=== PATIENT | female | born 1985 | race Hispanic/Latino ===

== ENCOUNTER 2018-11-13 14:07 | Emergency (ER) | payer SELFPAY ==
[~2018-11-13] VITALS: Ht 160 cm; Wt 68.0 kg
[2018-11-13] MEDS ORDERED: KEFLEX500 MG PO (16:21)
== END 2018-11-13 16:28 | disposition home or self-care (01) ==
LOC: ED 14:07
DX: L03.116 Cellulitis of left lower limb (principal)
CPT/HCPCS: 93971; 99283-25

== ENCOUNTER 2024-06-20 05:33 | Day surgery (SDC) | payer OTHER ==
[2024-06-15 14:42] VITALS: BP 136/87
[~2024-06-20] VITALS: Ht 157.5 cm; Wt 70.9 kg
[2024-06-20] VITALS (10 sets, daily range): BP systolic 115–135; BP diastolic 64–89
[~2024-06-20 05:33] MED LIST: KEFLEX500 MG PO; LACTATED RINGER'S 1,000 ML IV SCH; NAPROSYN500 MG PO; VALIUM10 MG PO
[2024-06-20] MEDS ORDERED: ALLEGRA ALLERG180 MG PO (06:05)
[2024-06-20] MEDS ORDERED: FLUTICASONE PRO16 GM NAS (06:06)
[2024-06-20] MEDS ORDERED: CEPHALEXIN500 MG PO (06:06)
[2024-06-20] MEDS ORDERED: MUCINEX600 MG PO (06:07)
[2024-06-20] MEDS ORDERED: CABERGOLINE0.5 MG PO (06:22)
[2024-06-20] MEDS ORDERED: LIDOCAINE HCL 1% 5 ML SDV INJ ONE (07:00)
[2024-06-20] MEDS ORDERED: IBLOOD GLUCOSE TEST STRIP 1 EA TEST VI PRN ×2 (07:00→09:00)
[2024-06-20] MEDS ORDERED: CEFAZOLIN SODIUM 2 GM/20 ML SYR IV SCH (07:00)
[2024-06-20] MEDS ORDERED: DEXAMETHASONE SOD PHOS 4 MG/ML VIAL ONE (07:30)
[2024-06-20] MEDS ORDERED: propofoL 200 MG/20 ML VIAL ONE (07:30)
[2024-06-20] MEDS ORDERED: ROCURONIUM BROMIDE 50 MG/5 ML SYR ONE (07:30)
[2024-06-20] MEDS ORDERED: LIDOCAINE HCL 2% 20 MG/ML VIAL INJ ONE (07:30)
[2024-06-20] MEDS ORDERED: dexmedeTOMIDine HCl 200 MCG/2 ML VIAL ONE (07:30)
[2024-06-20] MEDS ORDERED: LIDOCAINE HCL 2% 5 ML SDV ONE (07:30)
[2024-06-20] MEDS ORDERED: MIDAZOLAM HCL 2 MG/2 ML VIAL ONE (07:30)
[2024-06-20] MEDS ORDERED: SUGAMMADEX SODIUM 200 MG/2 ML ML ONE (07:30)
[2024-06-20] MEDS ORDERED: fentaNYL citrate 100 MCG/2 ML VIAL ONE (07:30)
[2024-06-20] MEDS ORDERED: ACETAMINOPHEN 1,000 MG/100 ML VIAL ONE (07:30)
[2024-06-20] MEDS ORDERED: ondansetron HCL 4 MG/2 ML VIAL ONE (07:30)
[2024-06-20] MEDS ORDERED: KETAMINE in NS 50 MG/5 ML SYR ONE (07:31)
[2024-06-20] MEDS ORDERED: SEVOFLURANE 250 ML BTL INH ONE (07:31)
[2024-06-20] MEDS ORDERED: KETOROLAC TROMETHAMINE 30 MG/ML VIAL ONE (07:33)
[2024-06-20] MEDS ORDERED: ondansetron HCL 4 MG/2 ML VIAL IV PRN ×2 (09:00→12:00)
[2024-06-20] MEDS ORDERED: NALOXONE HCL 0.4 MG SYR IV PRN ×2 (09:00→12:00)
[2024-06-20] MEDS ORDERED: droPERidol 5 MG/2 ML VIAL IV PRN (09:00)
[2024-06-20] MEDS ORDERED: HYDROmorphone HCL 1 MG/ML SYR IV PRN ×2 (09:00→12:00)
[2024-06-20] MEDS ORDERED: PROCHLORPERAZINE EDISYLATE 10 MG/2 ML VIAL IV PRN ×2 (09:00→12:00)
[2024-06-20] MEDS ORDERED: fentaNYL citrate 50 MCG/ML SDV IV PRN (09:00)
[2024-06-20] MEDS ORDERED: FLUORESCEIN SODIUM 500 MG/5 ML ML ONE (09:04)
[2024-06-20] MEDS ORDERED: LACTATED RINGER'S 1,000 ML IV ONE (09:07)
[2024-06-20] MEDS ORDERED: OXYCODONE/APAP 10/325 TAB PO ONE (11:15)
[2024-06-20] MEDS ORDERED: FAMOTIDINE 20 MG TAB PO PRN (12:00)
[2024-06-20] MEDS ORDERED: SIMETHICONE 125 MG TABLET CHEWABLE PO PRN (12:00)
[2024-06-20] MEDS ORDERED: FAMOTIDINE 20 MG/ 2 ML VIAL IV PRN (12:00)
[2024-06-20] MEDS ORDERED: MAGNESIUM HYDROXIDE/AL HYDROX 30 ML CUP PO PRN (12:00)
[2024-06-20] MEDS ORDERED: diphenhydrAMINE HCL 50 MG/ML VIAL IV PRN (12:00)
[2024-06-20] MEDS ORDERED: OXYCODONE/APAP 5/325 TAB PO PRN (12:00)
[2024-06-20] MEDS ORDERED: SIMETHICONE 125 MG TABLET CHEWABLE PO SCH (13:00)
[2024-06-20] MEDS ORDERED: SCOPOLAMINE 1 MG/3 DAYS PATCH 1 EACH TDSY TD ONE (14:45)
[2024-06-21 01:01] VITALS: BP 103/56
[2024-06-21 01:04] VITALS: BP 103/56
[2024-06-21 05:09] VITALS: BP 112/67
[2024-06-21 05:14] VITALS: BP 112/67
[2024-06-21 09:21] VITALS: BP 113/78
[2024-06-21 09:45] VITALS: BP 113/78
--- NOTE | 2024-06-24 12:56 | PATH ---
[facility] [address], [place] [address] Signed SPECIMEN(S): A UTERUS, CERVIX, AND BILATERAL TUBES SPECIMEN SOURCE: A. UTERUS, CERVIX, AND BILATERAL TUBES CLINICAL HISTORY: Adenomyosis, dysmenorrhea, AUB FINAL PATHOLOGIC DIAGNOSIS: Uterus with bilateral fallopian tubes, hysterectomy with bilateral salpingectomy: - Cervix: Endocervix with squamous metaplasia. - Negative for intraepithelial lesion and malignancy. - Endometrium: Early proliferative phase endometrium. - Negative for hyperplasia, atypia, and malignancy. - Myometrium: Benign myometrium. - Possible section scar identified in anterior lower uterine segment. - No adenomyosis or leiomyomata identified. - Serosa: Benign serosa with no pathologic abnormality. - Fallopian tubes: Right and left fallopian tubes with fimbriated ends. - Discontinuous, consistent with previous tubal ligation. - One tube has a benign 0.6 cm diameter paratubal cyst. - Otherwise no pathologic abnormality identified. SDL MICROSCOPIC EXAMINATION: Histologic sections of all submitted blocks are examined by light microscopy. These findings, together with the gross examination, support the pathologic diagnosis. GROSS DESCRIPTION: The specimen, labeled and designated "Moises Muñoz, uterus, cervix and bilateral tubes," is received in formalin and consists of uterus with attached cervix and detached bilateral fallopian tubes. The uterus and cervix weigh 95 grams with the following measurements: cervix to fundus 8.7 cm, cornu to cornu 5.4 cm, anterior to posterior 4.0 cm. The uterine serosa predominately pink-bey smooth with a few adhesions located on the posterior aspect. The cervix measures 2.8 x 2.7 cm, with pink-bey smooth ectocervical mucosa, and an ovoid, patent 0.5 cm external os. The specimen is PATIENT NAME: CHANDU MUÑOZ PATHOLOGY DATE OF : 81 REPORT #: [id number] PHYSICIAN: [facility] PCP: KELSIE TAMAYO MD REPORT IS CONFIDENTIAL AND NOT TO BE RELEASED WITHOUT AUTHORIZATION [facility] [address], [place] [address] Signed opened to reveal triangular-shaped 4.0 x 2.5 cm endometrial cavity lined by pink-bey endometrium ranging in thickness from 0.1 to 0.3 cm. The lower anterior uterine segment shows a scarred area consistent with a possible previous . The myometrial has pink-bey trabeculated cut surfaces with a thickness is 1.7 cm. There are no nodules or masses identified. The first fallopian tube measures 3.8 x 0.6 with attached fimbriated end and is blunted at one end consistent with previous tubal ligation. The first portion of the second fallopian tube measures 0.7 x 0.3 cm with a single peritubular cyst measuring 0.6 cm in greatest dimension. Upon sectioning the second portion of the tube consistent with vasculature no grossly identifiable fallopian tube seen. Cassette Summary: (A1) service representative sections of cervix (A2) service representative sections of endometriummyometrium (A3) service representative section of possible scar (A4) service representative sections of the first described fallopian tube (A5) entire second described fragment possible fallopian tube JM (under the direct supervision of a pathologist) The Gross Description was prepared using a voice recognition system. The report was reviewed for accuracy; however, sound-alike word errors, addition and/or deletions may occur. If there are any questions about this report, please contact Client Services. ADDITIONAL NOTES: Immunohistochemical and/or in situ hybridization studies if performed in this case included appropriate positive controls that reacted as expected. This test was developed and its performance characteristics determined by [facility]. It has not been cleared or approved by the U.S. Food and Drug Administration. The FDA has determined that such clearance or approval is not necessary. This test is used for clinical purposes. It should not be regarded as investigational or for research. [facility] is certified under the Clinical Laboratory Improvement Amendments of 1988 (CLIA) as qualified to perform high complexity clinical laboratory testing. PERFORMING LABORATORY: Technical component was performed by [facility], [address] [place] [id number] (CLIA# [id number]). Professional interpretation was PATIENT NAME: CHANDU MUÑOZ PATHOLOGY DATE OF : [birth year] REPORT #: [id number] PHYSICIAN: DOLORES DE LA VEGA PCP: KELSIE TAMAYO MD REPORT IS CONFIDENTIAL AND NOT TO BE RELEASED WITHOUT AUTHORIZATION [address] [address] Signed performed by [facility], [address] [place] [id number] (CLIA#: [id number]). Diagnostician: Meaghan Carmona MD Pathologist Electronically Signed 06/24/2024 Copies: ~ PATIENT NAME: CHANDU MUÑOZ PATHOLOGY DATE OF : [birth year] REPORT #: [id number] PHYSICIAN: D[facility]ES PATHOLOG[facility] PCP: KELSIE TAMAYO MD REPORT IS CONFIDENTIAL AND NOT TO BE RELEASED WITHOUT AUTHORIZATION
== END 2024-06-21 10:13 | disposition home or self-care (01) ==
LOC: DS 05:33 → OPS 05:33 → DS 07:30 → MS 18:00 → OPS 06-21 10:13
PROVIDERS: ATTEND Obstetrics & Gynecology
PROC: 0UT94ZZ Resection of Uterus, Percutaneous Endoscopic Approach (ICD-10-PCS; principal; 2024-06-20 07:30)
DX: N87.9 Dysplasia of cervix uteri, unspecified (principal); N83.8 Other noninflammatory disorders of ovary, fallopian tube and broad ligament; Z88.2 Allergy status to sulfonamides; Z79.899 Other long term (current) drug therapy; Z98.51 Tubal ligation status
CPT/HCPCS: 00840; 88307; A9270; J0131; J0690; J1100; J1170; J1885; J2001; J2250; J2405; J2704; J3010; J3490; J7121